=== PATIENT | male | born 1955 | race Caucasian/White ===

== ENCOUNTER → 2019-04-06 | Outpatient (CLI) | payer OTHER ==
[2019-04-06 15:54] LABS: CALCIUM 9.4 mg/dL (8.5-10.1); POTASSIUM 4.1 mmol/L (3.5-5.1)
== END ==
LOC: M.LAB 15:20
PROVIDERS: Nurse Practitioner
DX: I10 Essential (primary) hypertension (principal); I47.1 Supraventricular tachycardia; M79.89 Other specified soft tissue disorders